=== PATIENT | male | born 1960 | race Caucasian/White ===

== ENCOUNTER → 2024-10-19 | Outpatient (REF) | payer MEDICARE, OTHER, SELFPAY ==
[2024-10-19 08:31] LABS: Hemoglobin 13.9 g/dL (13.0-16.5); Mean Corp Hgb Conc 29.6 g/dL (32-36); Mean Corpuscular Hgb 18.7 pg (27.0-32.0); Mean Corpuscular Volume 63.2 fL (80-94); Platelet Count 195 K/mm3 (150-450); Red Blood Count 7.44 M/mm3 (4.6-6.2); White Blood Count 6.5 K/mm3 (4.4-11.0)
[2024-10-19 08:33] LABS: Scan Indicated on CBC? Y/N NO
[2024-10-19 08:43] LABS: Anion Gap 12 (5-15); BUN 49 mg/dL (7-18); BUN/Creat Ratio 8.9 RATIO (10-20); Calcium,Total 10.2 mg/dL (8.5-10.1); Chloride 101 mmol/L (98-107); Creatinine, Serum 5.53 mg/dL (0.70-1.30); EST Glomerular Filtration Rate 11 mL/min (>60); Est Glom Filt Rate - Afr Amer 14 mL/min (>60); Glucose 162 mg/dL (74-106); Potassium 4.7 mmol/L (3.5-5.1); Sodium Level 136 mmol/L (136-145)
== END ==
LOC: OLS.SANC 05:00
DX: I48.91 Unspecified atrial fibrillation (principal); D64.9 Anemia, unspecified; E11.22 Type 2 diabetes mellitus with diabetic chronic kidney disease; R78.81 Bacteremia; N18.6 End stage renal disease
CPT/HCPCS: 36415; 80048; 85027

== ENCOUNTER → 2024-10-24 | Outpatient (REF) | payer OTHER, MEDICARE, SELFPAY ==
[2024-10-24 19:21] LABS: Albumin, Serum 4.5 g/dL (3.4-4.8); BUN 59 mg/dL (4-19); Creatinine, Serum 6.6 mg/dL (0.8-1.3); EST Glomerular Filtration Rate 9 (>60); Glucose 122 mg/dL (70-99)
[2024-10-25 03:51] LABS: Calcium,Total 10.2 mg/dL (7.6-11.0); Potassium 5.2 mmol/L (3.5-5.1); Sodium Level 137 mmol/L (136-145)
[2024-10-25 03:52] LABS: Carbon Dioxide 14.9 mmol/L (21.0-32.0); Chloride 97 mmol/L (98-107)
== END ==
LOC: OLS.SANC 04:00
DX: E11.22 Type 2 diabetes mellitus with diabetic chronic kidney disease (principal); I12.0 Hypertensive chronic kidney disease with stage 5 chronic kidney disease or end stage renal disease; N18.6 End stage renal disease; I48.91 Unspecified atrial fibrillation; D64.9 Anemia, unspecified
CPT/HCPCS: 36415; 80069